=== PATIENT | female | born 1960 | race Caucasian/White ===

== ENCOUNTER → 2017-02-11 | Outpatient (CLI) | payer OTHER ==
[~2017-02-11] MED LIST: IBUPROFEN 800800 MG PO; NOHOMEMEDICATIONS; NORCO 5-325 TA1 EACH PO; PREDNISONE50 MG PO
== END ==
LOC: RAD 13:41
DX: Z12.31 Encounter for screening mammogram for malignant neoplasm of breast (principal)

== ENCOUNTER → 2017-08-04 | Outpatient (CLI) | payer OTHER | LOC: ULTRA 08:13 | DX: N64.4 Mastodynia (principal) ==

== ENCOUNTER → 2017-11-28 | Outpatient (CLI) | payer OTHER ==
--- NOTE | ~2017-11-28 | EXE ---
[facility] [place] [address] STRESS ECHOCARDIOGRAM Name: LENORE MALDONADO Room #: REG CL [facility]#: [id number] Admission: 11/28/17 Attend Phys: Grady Gayle, Discharge: Date of : 60 Date of Service: 11/28/17 1619 Report #: [id number] THIS REPORT FOR: //name// APPROVED REPORT Study performed: 11/28/2017 13:14:51 Exam: Stress Echocardiogram Indication: Chest pain Patient Location: Out-Patient Stress Nurse: Zina Castaneda RN Status: routine Ht: 5 ft 1 in HR: 69 bpm BP: 117/64 mmHg Rhythm: NSR Medical History Medical History: Arrhythmia, Pacemaker Medications: Listed on worksheet Allergies: Listed on worksheet Cardiac Risk Factors: Hyperlipidemia Procedure The patient underwent an Exercise Stress Test using the Jean-Claude Protocol. Blood pressure, heart rate, and EKG were monitored. An Echocardiogram was performed by critical care technician in four stages in quad fashion. At peak stress, four selected images were obtained and placed side by side with resting images for comparison. Stress Test Details Stress Test: Exercise stress testing was performed using a Jean-Claude protocol. HR Resting HR: 69 bpm Max Heart Rate (APMHR): 163 bpm Max HR Achieved: 169 bpm Target HR (85% APMHR): 138 bpm % of APMHR: 103 Recovery HR: 100 bpm HR response to stress: Normal HR response to stress BP Resting BP: 117/64 mmHg Max BP: 140/80 mmHg Recovery BP: 107/76 mmHg [facility] [address] [place] [address] STRESS ECHOCARDIOGRAM Name: JOELLENORE BUTTERFIELD Room #: REG CL [facility]#: [id number] Admission: 11/28/17 Attend Phys: Grady Gayle, Discharge: Date of : 60 Date of Service: 11/28/17 1619 Report #: [id number] Resting ECG: Sinus Rhythm, nonspecific ST and T wave changes Stress ECG: Sinus Rhythm ST Change: Normal Maximum ST Deviation: 0 mm Arrhythmia: None Recovery ECG: Sinus Rhythm, nonspecific ST and T wave changes Recovery ST Change: Normal Recovery ST Deviation: 0 mm Recovery Arrhythmia: None Clinical Reason for Termination: Moderate fatigue Stress Symptoms: some chest pressure on right side Exercise duration: 9 min 29 sec Highest Stage Achieved: Stage 4: 4.2 mph at 16% grade. Exercise capacity: 11.50 METs Angina Score: None Stress ECG Conclusion Clinical: Non-ischemic ECG: Non-ischemic Montero Treadmill Score is 9.0 which is Low risk. Pre-Stress Echo The resting Echocardiogram showed normal left ventricular contractility with an estimated Ejection Fraction of about 55-60%. Pacemaker wire noted. Mild MR, trivial AI, Moderate TR with an estimated PAP of 28mmHg plus the right atrial pressure. Post-Stress Echo The stress Echocardiogram showed normal left ventricular contractility with an estimated Ejection Fraction of about 65-70%. Normal augmentation of wall motion in all segments on post stress images. Clinical No clinical or ECG evidence for ischemia. Conclusion Clinical Response: Non-ischemic Exercise Capacity: Average Stress ECG Response: Non-ischemic Stress Echo Images: Non-ischemic [facility] [address] [place] [address] STRESS ECHOCARDIOGRAM Name: LENORE MALDONADO Room #: REG [facility]#: [id number] Admission: 11/28/17 Attend Phys: Grady Gayle, Discharge: Date of : 60 Date of Service: 11/28/171618 Report #: [id number] The left ventricle is normal in size and wall thickness in both the rest and stress images. No echocardiographic evidence for exercise induced ischemia. Other Information Study Quality: Good <Conclusion> The left ventricle is normal in size and wall thickness in both the rest and stress images. No echocardiographic evidence for exercise induced ischemia. <ELECTRONICALLY SIGNED> By: Grady Gayle MD, FACC 11/28/171618 18 18 Grady Gayle MD, FACC /INF
== END ==
LOC: CV 10:35
DX: R07.9 Chest pain, unspecified (principal); R07.2 Precordial pain; I49.9 Cardiac arrhythmia, unspecified

== ENCOUNTER → 2018-03-12 | Outpatient (CLI) | payer OTHER | LOC: RAD 11:27 | DX: Z12.31 Encounter for screening mammogram for malignant neoplasm of breast (principal) ==